=== PATIENT | female | born 1950 | race Caucasian/White ===

== ENCOUNTER 2016-04-19 00:26 | Outpatient (CLI) | payer SELFPAY | END 2016-04-19 00:27 | disposition EMS.NT | DX: R07.9 Chest pain, unspecified (principal) ==

== ENCOUNTER 2017-04-03 16:11 | Outpatient (CLI) | payer BC ==
--- NOTE | 2017-04-04 09:32 | XRAY Report ---
TWO VIEW CHEST: 04/03/2017 CLINICAL INDICATION: Cough for 3 weeks. FINDINGS: Frontal and lateral views of the chest demonstrate a normal cardiac silhouette. There is left greater than right basilar airspace disease, with trace effusions. No pneumothorax is seen. IMPRESSION: BIBASILAR INFILTRATES WITH TRACE EFFUSIONS. TD: 04/04/2017 09:31
== END 2017-04-03 16:12 | disposition home or self-care (01) ==
LOC: DI.S 16:11
PROVIDERS: ATTEND Nurse Practitioner Family
DX: R91.8 Other nonspecific abnormal finding of lung field (principal)
CPT/HCPCS: 71046

== ENCOUNTER 2017-04-17 08:39 | Outpatient (CLI) | payer BC ==
--- NOTE | 2017-04-17 12:19 | XRAY Report ---
TWO VIEW CHEST: 04/17/2017 COMPARISON: Two view chest 04/03/2017 INDICATION: Repeat chest x-ray. TECHNIQUE: Two views. FINDINGS: Interval resolution of bilateral pleural effusions. Clear lungs. No pneumothorax. Mediastinum unremarkable. IMPRESSION: INTERVAL RESOLUTION OF PLEURAL EFFUSIONS. NO ACUTE FINDINGS. TD: 04/17/2017 12:18 [facility]
== END 2017-04-17 08:40 | disposition home or self-care (01) ==
LOC: DI.S 08:39
PROVIDERS: ATTEND Nurse Practitioner Family
DX: R05 Cough (principal); R06.02 Shortness of breath
CPT/HCPCS: 71046

== ENCOUNTER 2018-09-26 11:45 | Outpatient (CLI) | payer BC ==
--- NOTE | 2018-09-26 14:19 | CARDIAC PROCEDURE NOTE ---
DATE OF SERVICE: 09/26/2018 Physician: aNncy Luna MD, [facility] INDICATION: Fatigue, dyspnea. CARDIAC RISK FACTORS: Postmenopausal status. PROCEDURE: After signing informed consent, the patient underwent a Robert- protocol treadmill stress test with Echo imaging at rest and stress. RESTING HEART RATE: 61. PEAK HEART RATE: 152 (98% predicted maximum heart rate for age). RESTING BLOOD PRESSURE: 114/68. PEAK BLOOD PRESSURE: 170/70. The patient exercised for 9 minutes on a Robert-protocol treadmill stress test. She achieved a peak heart rate of 152 (98% predicted max heart rate) and 10.2 METS. The patient developed shortness of breath in the final stage; she had no chest pain. Oxygen saturation was 99% in stage 1, 100% in stage 2, and dropped to 84% on room air at peak. The patient described her exertion at 14-15/20 on a Pascual scale at peak, (high). Oxygen saturation recovered to 98% within 1 minute of recovery. RESTING EKG: Normal sinus rhythm, left atrial enlargement, LVH voltage. EKG AT PEAK: Upsloping ST-depressions in leads V4 through V6. SUMMARY 1. Abnormal resting EKG. 2. Oxygen desaturation occurs at peak exercise. 3. Nonspecific changes on the EKG occur at peak exercise, not specific for ischemia. 4. This patient's cardiac risk, based on this test: MODERATE. 5. Echo images reported separately. cc: ANSHU Dennis TD: 09/26/2018 13:14 MTDD
== END 2018-09-26 11:46 | disposition home or self-care (01) ==
LOC: DI 11:45
PROVIDERS: ATTEND Naturopath
DX: R06.09 Other forms of dyspnea (principal); R53.82 Chronic fatigue, unspecified; R94.31 Abnormal electrocardiogram [ECG] [EKG]
CPT/HCPCS: 93350

== ENCOUNTER 2019-02-16 11:44 | Outpatient (CLI) | payer MEDICARE, OTHER | END 2019-02-16 11:45 | disposition critical access hospital (66) | LOC: EMS 11:44 | PROVIDERS: ATTEND Surgery | DX: R42 Dizziness and giddiness (principal); R06.02 Shortness of breath | CPT/HCPCS: A0425; A0427 ==

== ENCOUNTER 2019-02-16 12:18 | Emergency (ER) | payer MEDICARE, OTHER ==
--- NOTE | 2019-02-16 13:23 | ED Physician Documentation ---
History of Present Illness - Stated complaint Stated Complaint: DIZZY - Chief complaint Chief Complaint: Resp - Additonal information Additional information: This is a 68-year-old female who denies past medical history who presents with dizziness. Patient states that this morning she ate breakfast and went for a walk and felt fine but after eating a meal she stood up and she felt somewhat lightheaded. She did not pass out. This episode persisted, prompting her to come into the emergency department. In the background to this current episode she states she also has had a mild and intermittent amount of shortness of breath which is been ongoing since last June. She had a stress test with a library cataloging technician that was stopped early because she became hypoxic about 85% per patient report, and she was ordered to have a chest x-ray which supposedly revealed a pneumonia, she was treated for this and she was supposed to have a follow-up x-ray but this did not happen because she went on a road trip. She states that her breathing is unchanged recently, from time to time she will feel just a little bit of shortness of breath but this has not increased recently. She has not had any chest pain. She did have an episode of diarrhea this morning which was nonbloody. She has not had any vomiting but did have a small amount of nausea earlier with her lightheadedness. She denies any pain or burning with urination. No blood in her stool or no dark black stool. She has had a hysterectomy. Review of Systems Constitutional: denies: Fever Eyes: denies: Loss of vision Nose: denies: Rhinorrhea / runny nose Cardiac: denies: Chest pain / pressure Respiratory: reports: Dyspnea GI: reports: Diarrhea. denies: Abdominal Pain : denies: Dysuria Neurologic: reports: Other (Lightheaded.) PD PAST MEDICAL HISTORY - Past Medical History Past Medical History: Yes Psych: Anxiety - Past Surgical History Past Surgical History: Yes /CHANGE ANALYST: Hysterectomy - Allergies Allergies/Adverse Reactions: Allergies Allergy/AdvReac Type Severity Reaction Status Date / Time No Known Drug Allergies Allergy Verified 02/16/19 12:25 - Social History Does the pt smoke?: No Smoking Status: Never smoker Does the pt drink ETOH?: No Does the pt have substance abuse?: No - Immunizations Immunizations are current?: Yes PD ED PE NORMAL - Vitals Vital signs reviewed: Yes - General General: Alert and oriented X 3, No acute distress - HEENT HEENT: PERRL - Neck Neck: Supple, no meningeal sign - Cardiac Cardiac: RRR - Respiratory Respiratory: Clear bilaterally - Abdomen Abdomen: Soft, Non tender - Derm Derm: Warm and dry - Extremities Extremities: No deformity - Neuro Neuro: Alert and oriented X 3, 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 Intervals within normal limits) - Labs Labs: Laboratory Tests 02/16/19 02/16/19 02/16/19 13:59 13:59 13:59 WBC 6.8 RBC 3.89 L Hgb 11.8 L Hct 36.8 L MCV 94.6 MCH 30.3 MCHC 32.1 RDW 13.6 Plt Count 202 MPV 10.2 Neut # (Auto) 5.4 Lymph # (Auto) 0.8 L Leslie # (Auto) 0.5 Eos # (Auto) 0.0 Baso # (Auto) 0.0 Absolute Nucleated RBC 0.00 Nucleated RBC % 0.0 Sodium 138 Potassium 3.6 Chloride 103 Carbon Dioxide 26 Anion Gap 9.0 BUN 14 Creatinine 0.6 Estimated GFR (MDRD) 100 Glucose 134 H Calcium 8.5 Total Bilirubin 0.8 AST 19 ALT 17 Alkaline Phosphatase 48 Troponin I High Sens < 2.3 L B-Natriuretic Peptide Total Protein 5.7 L Albumin 3.7 Globulin 2.0 L Albumin/Globulin Ratio 1.9 Lipase 29 02/16/19 13:59 WBC RBC Hgb Hct MCV MCH MCHC RDW Plt Count MPV Neut # (Auto) Lymph # (Auto) Leslie # (Auto) Eos # (Auto) Baso # (Auto) Absolute Nucleated RBC Nucleated RBC % Sodium Potassium Chloride Carbon Dioxide Anion Gap BUN Creatinine Estimated GFR (MDRD) Glucose Calcium Total Bilirubin AST ALT Alkaline Phosphatase Troponin I High Sens B-Natriuretic Peptide 35 Total Protein Albumin Globulin Albumin/Globulin Ratio Lipase - Rads (name of study) cxr Radiology: Other (No acute cardiopulmonary abnormality) PD MEDICAL DECISION MAKING - ED course Complexity details: considered differential (Dehydration, anemia, dysrhythmia, ACS, pneumonia, pleural effusion) ED course: On arrival patient is well-appearing, her heart rate is in the mid 50s to low 60s, her blood pressure is normal, her neurologic exam is also normal. Her EKG shows no convincing signs of ischemia or dysrhythmia. Her chest x-ray is clear. Her labs show a mild anemia of 11.8, patient states that she has been told she has a mild anemia in the past. She has no blood in her stool, no signs of melena. I did discuss rectal examination occult blood testing today, patient declined and preferred to have further testing as an outpatient, she is also had a colonoscopy within the last year which was normal, and given all these factors I think it is reasonable to defer this to her primary care provider in accordance with patient's wishes. Her electrolytes are unremarkable, her troponin is negative and her symptoms are not consistent with ACS. Pulmonary embolism was considered however her shortness of breath is mild ongoing for many months, and her oxygen saturation is normal and she has no tachycardia, making this extremely unlikely. After she received some IV fluids she is feeling back to normal and is a ambulatory and asymptomatic. She may have had some mild orthostasis. I discussed that her labs are reassuring and not see an obvious cause of her symptoms, but given she is feeling well and asymptomatic at this time I think she is appropriate for outpatient follow-up. I discussed I discussed return precautions with any worsening or new concerning symptoms and patient was discharged home in very good condition. Departure - Departure Disposition: 01 Home, Self Care Clinical Impression: Dizziness Condition: Good Follow-Up: Anita Shah ND [Primary Care Provider] - Anjelica Isaacs MD [Provider Admit Priv/Credential] - Comments: You were seen today for dizziness. Your labs overall look very reassuring, your hemoglobin is a little bit low at 11.8, this is a mild anemia and should be followed by your primary care provider. If you are developing bleeding or dark black stool, passing out or worsening shortness of breath these can be signs of a GI bleed and you should return to the emergency department. Your electrolytes were normal today, your heart enzymes were also normal, and your chest x-ray did not show any obvious problems. Please drink plenty of fluids, follow-up with your primary care provider and your library cataloging technician as we discussed, and if you are having any new or worsening symptoms Such as chest pain, passing out, difficulty breathing, return to the emergency department. Regarding your episodes of vertigo you have had in the past, it sounds like this may be positional vertigo. Consider trying the Patricia maneuvers if this comes back. [employer] has several instructional videos on the Patricia Maneuvers. Discharge Date/Time: 02/16/19 16:20
[2019-02-16 14:09] LABS: BASOPHILS % (AUTO) 0.4 %; EOSINOPHILS % (AUTO) 0.1 %; HGB - HEMOGLOBIN 11.8 g/dL (12.0-16.0); LYMPHOCYTES # (AUTO) 0.8 10^3/uL (1.5-3.5); LYMPHOCYTES % (AUTO) 11.6 %; MEAN CORPUSCULAR HEMOGLOBIN 30.3 pg (27.0-31.0); MEAN CORPUSCULAR HGB CONC 32.1 g/dL (32.0-36.0); MEAN CORPUSCULAR VOLUME 94.6 fL (81.0-99.0); MEAN PLATELET VOLUME 10.2 fL (7.9-10.8); MONOCYTES # (AUTO) 0.5 10^3/uL (0.0-1.0); MONOCYTES % (AUTO) 7.1 %; NEUTROPHILS # (AUTO) 5.4 10^3/uL (1.5-6.6); NEUTROPHILS % (AUTO) 80.5 %; PLT - PLATELET COUNT 202 10^3/uL (130-450); RED BLOOD COUNT 3.89 10^6/uL (4.20-5.40); RED CELL DISTRIBUTION WIDTH 13.6 % (12.0-15.0); WHITE BLOOD COUNT 6.8 x10^3/uL (4.8-10.8)
[2019-02-16 14:19] LABS: ALBUMIN 3.7 g/dL (3.2-5.5); ALBUMIN/GLOBULIN RATIO 1.9 (1.0-2.2); BILIRUBIN,TOTAL 0.8 mg/dL (0.2-1.0); CALCIUM 8.5 mg/dL (8.5-10.3); CREATININE 0.6 mg/dL (0.4-1.0); TOTAL PROTEIN 5.7 g/dL (6.7-8.2)
[2019-02-16 14:32] VITALS: BP 114/73
--- NOTE | 2019-02-16 15:15 | XRAY Report ---
Reason: Mild shortness of breath for months Procedure Date: 02/16/2019 Accession Number: [id number] / [id number] Procedure: XR - Chest 2 View X-Ray CPT Code: 47962 Final Report FULL RESULT: EXAM: CHEST RADIOGRAPHY EXAM DATE: 02/16/2019 02:45 PM. CLINICAL HISTORY: Mild shortness of breath for months. COMPARISON: Chest radiograph from 04/17/2017. TECHNIQUE: 2 views. FINDINGS: Lungs/Pleura: No focal airspace opacity. No pleural effusion or pneumothorax. Mediastinum: Cardiomediastinal silhouette is within normal limits. Pulmonary vasculature is unremarkable. Other: None. IMPRESSION: No acute cardiopulmonary abnormality. RADIA
== END 2019-02-16 16:20 | disposition home or self-care (01) ==
LOC: EDUNIT# → ED 12:18
DX: R42 Dizziness and giddiness (principal); R06.02 Shortness of breath; D64.9 Anemia, unspecified
CPT/HCPCS: 36415; 71046; 80053; 83690; 83880; 84484; 85025; 93005; 99283; 99284

== ENCOUNTER 2022-06-12 14:03 | Outpatient (CLI) | payer MEDICARE, OTHER ==
--- NOTE | 2022-06-14 10:54 | Mammography Report ---
BILATERAL DIGITAL SCREENING MAMMOGRAM 3D/2D: 06/12/2022 CLINICAL: Routine screening. Comparison is made to exams dated: 02/25/2018 mammogram, 10/16/2011 mammogram, and 12/03/2008 mammogra m - [facility]. There are scattered areas of fibroglandular density in both breasts (category b / 25%-50% glandular t issue). No significant masses, calcifications, or other findings are seen in either breast. There has been no significant interval change. IMPRESSION: NEGATIVE There is no mammographic evidence of malignancy. A 1 year screening mammogram is recommended. Based on the Tyrer Cuzick model (a risk assessment model) the patients lifetime risk is 6.4% and her 10 year risk is 3.8%. According to the ACR, ACS, and NCCN guidelines, an annual breast MRI exam joby g with mammogram is recommended if the patients lifetime risk is 20% or greater. This exam was interpreted at Station ID: [id number]. NOTE: For mammograms, a report in lay terms will be sent to the patient. Approximately 15% of breast malignancies will not be visualized mammographically. In the management of a palpable breast mass, a negative mammogram must not discourage biopsy of a clinically suspicious lesion. Electronically Signed By: Wayne boothe/[email or web address]:06/13/2022 09:20:51 letter sent: No_Letter ACR BI-RADS Category 1: Negative 3341F PARENCHYMAL PATTERN: (A) - The breast(s) demonstrate(s) scattered fibroglandular densities. BI-RADS CATEGORY: (1) - 1 Mammogram [id number] 1 year screening LATERALITY: (B)
== END 2022-06-12 14:04 | disposition home or self-care (01) ==
LOC: DI.S 14:03
DX: Z12.31 Encounter for screening mammogram for malignant neoplasm of breast (principal)

== ENCOUNTER 2022-09-04 08:00 | Outpatient (CLI) | payer MEDICARE, OTHER ==
--- NOTE | 2022-09-04 18:03 | XRAY Report ---
PROCEDURE: Ankle 3 View RT INDICATIONS: SPRAIN OF RIGHT ANKLE TECHNIQUE: 3 views of the ankle were acquired. COMPARISON: None. FINDINGS: Bones: Oblique distal fibular fracture with minimal displacement. Ankle mortise is maintained. Soft tissues: No tibiotalar joint effusion. Achilles tendon appears normal. IMPRESSION: Oblique distal fibular fracture. Ankle mortise maintained Reviewed by: Willie Stephenson MD on 09/04/2022 5:02 PM [facility] Approved by: Willie Stephenson MD on 09/04/2022 5:02 PM AKDT Station ID: [id number]
== END 2022-09-04 23:59 | disposition home or self-care (01) ==
LOC: DI.S 08:00
PROVIDERS: ATTEND Physician Assistant Medical
DX: S93.491A Sprain of other ligament of right ankle, initial encounter (principal); S82.431A Displaced oblique fracture of shaft of right fibula, initial encounter for closed fracture

== ENCOUNTER 2022-09-08 11:17 | Outpatient (CLI) | payer MEDICARE, OTHER ==
--- NOTE | 2022-09-08 13:59 | CT Report ---
PROCEDURE: LOWER EXTREMITY WO - RT INDICATIONS: FX OF SHAFT OF RIGHT FIBULA TECHNIQUE: Noncontrast 3-mm axial sections acquired from the distal tibial shaft to the talar dome, with coronal and sagittal reformats. For radiation dose reduction, the following was used: automated exposure c ontrol, adjustment of mA and/or kV according to patient size. COMPARISON: Left ankle radiographs 09/04/2022 FINDINGS: Image quality: Excellent. Bones: There is a mildly displaced oblique fracture of the distal fibular metaphysis extending into the mortise joint. The dominant distal fracture fragment is displaced posteriorly by approximately 4 mm and laterally displaced by 3 mm with 5 mm overriding of fracture fragments. A 12 mm osseous fragme nt along the anterior fracture line is displaced and angulated anteriorly. The medial tibiotalar ramona r space is normal in thickness. Nondisplaced intra-articular fracture is seen at the posterior malleolus of the distal tibial plafond and. No step-off is seen at the articular surface. No medial malleolar fracture is seen. No addition al fracture is seen in the hindfoot. Degenerative changes are seen at the talonavicular joint with hawkins bchondral sclerosis and subchondral cystic changes. Tiny posterior and plantar calcaneal enthesophyte s. Soft tissues: Soft tissue edema is seen surrounding the ankle. The articular cartilages, ligaments, and tendons are not well evaluated with standard CT. However, no definite tendon entrapment is seen. Small tibiotalar effusion. The musculature of the lower leg and foot is normal in bulk. IMPRESSION: 1.Mildly displaced comminuted oblique intra-articular fracture of the distal fibula. 2.Nondisplaced intra-articular fracture of the posterior tibial plafond without step-off at the artic ular surface. Reviewed by: Warren Pastor MD on 09/08/2022 1:58 PM PDT Approved by: Warren Pastor MD on 09/08/2022 1:58 PM PDT Station ID: [id number]
== END 2022-09-08 11:18 | disposition home or self-care (01) ==
LOC: DI 11:17
PROVIDERS: ATTEND Orthopaedic Surgery
DX: S82.832A Other fracture of upper and lower end of left fibula, initial encounter for closed fracture (principal); S82.255A Nondisplaced comminuted fracture of shaft of left tibia, initial encounter for closed fracture

== ENCOUNTER 2022-10-12 08:00 | Outpatient (CLI) | payer MEDICARE, OTHER ==
--- NOTE | 2022-10-12 20:48 | XRAY Report ---
PROCEDURE: Ankle 3 View RT INDICATIONS: RIGHT ANKLE FRACTURE TECHNIQUE: 3 views of the ankle were acquired. COMPARISON: Right ankle radiographs 09/04/2022 FINDINGS: Bones: Similar alignment of the previously demonstrated mildly displaced lateral malleolus fracture. Mild bony callus present. No ankle mortise asymmetry identified. Tibiotalar degenerative changes are present. Soft tissues: No tibiotalar joint effusion. IMPRESSION: Similar alignment of the previously demonstrated lateral malleolus fracture. Reviewed by: Warren Smith MD on 10/12/2022 8:46 PM PDT Approved by: Warren Smith MD on 10/12/2022 8:46 PM PDT Station ID: [id number]
== END 2022-10-12 23:59 | disposition home or self-care (01) ==
LOC: DI.WOS 08:00
PROVIDERS: ATTEND Orthopaedic Surgery
DX: S82.61XD Displaced fracture of lateral malleolus of right fibula, subsequent encounter for closed fracture with routine healing (principal)

== ENCOUNTER 2023-05-10 10:04 | Outpatient (CLI) | payer MEDICARE ==
--- NOTE | 2023-05-10 11:33 | DEXA Report ---
PROCEDURE: Dexa Spine and/or Hip INDICATIONS: OSTEOPOROSIS SCREENING TECHNIQUE: Dual energy x-ray absorptiometry (DXA) was performed on a [email or web address] System. Regions measur ed are the AP Spine, femoral neck, and if needed forearm. COMPARISON: None FINDINGS: Lumbar Spine: Bone Mineral Density: 0.957 g/cm/cm,T score: -1.9. Left Femoral Neck: Bone Mineral Density: 0.667 g/cm/cm, T score: -2.7. Left Hip: Bone Mineral Density: 0.724 g/cm/cm,T score: -2.3. (T score greater or equal to -1.0: NORMAL) (T score from -1.1 to -2.4: OSTEOPENIA) (T score less than or equal to -2.5 to: OSTEOPOROSIS) Impression: By WHO criteria, this patient has osteoporosis. Patients with diagnosis of osteoporosis or osteopenia should have regular bone mineral density assess ment. For those eligible for Medicare, routine testing is allowed once every 2 years. Testing frequ ency can be increased for patients who have rapidly progressing disease or for those who are receivin g medical therapy to restore bone mass. Reviewed by: Meir King MD on 05/10/2023 11:31 AM PDT Approved by: Meir King MD on 05/10/2023 11:31 AM PDT Station ID: [id number]
== END 2023-05-10 10:05 | disposition home or self-care (01) ==
LOC: DI 10:04
PROVIDERS: ATTEND Nurse Practitioner Family
DX: Z13.820 Encounter for screening for osteoporosis (principal); M81.0 Age-related osteoporosis without current pathological fracture

== ENCOUNTER → 2023-07-03 | Outpatient (CLI) | payer MEDICARE ==
[2023-09-26 14:12] LABS: ALBUMIN 4.1 g/dL (3.2-5.5); ALBUMIN/GLOBULIN RATIO 1.6 (1.0-2.2); BILIRUBIN,TOTAL 0.7 mg/dL (0.2-1.0); CALCIUM 9.2 mg/dL (8.5-10.3); CREATININE 0.7 mg/dL (0.6-1.3); POTASSIUM 3.9 mmol/L (3.5-4.5); TOTAL PROTEIN 6.7 g/dL (6.4-8.9)
== END ==
LOC: LAB.S 07:28
PROVIDERS: ATTEND Nurse Practitioner Family
DX: M81.0 Age-related osteoporosis without current pathological fracture (principal)
CPT/HCPCS: 36415; 80053; 82306